=== PATIENT | male | born 1970 | race Caucasian/White ===

== ENCOUNTER → 2022-10-21 10:37 | Outpatient (CLI) | payer OTHER, MEDICAID, SELFPAY ==
[2022-10-21 20:32] LABS: Add Manual Diff / Slide Review NO; Basophils Absolute Auto 100 /uL (0-100); Basophils Percent Auto 0.8 % (0-2); Eosinophils Absolute Auto 100 /uL (0-450); Eosinophils Percent Auto 1.6 % (2-4); Hematocrit 46.2 % (41-53); Hemoglobin 15.5 g/dL (13.5-17.5); Lymphocytes Absolute Auto 2700 /uL (1100-4500); Lymphocytes Percent Auto 32.7 % (25-40); Mean Corpuscular HGB Conc 33.6 % (30-36); Mean Corpuscular Hemoglobin 32.2 PG (26-34); Mean Corpuscular Volume 95.8 fL (80-100); Monocytes Absolute Auto 700 /uL (0-900); Monocytes Percent Auto 8.2 % (3-14); Neutrophils Absolute Auto 4600 /uL (1500-7000); Neutrophils Percent Auto 56.7 % (50-75); Platelet Count 342 X10^3/uL (150-400); Red Blood Cell Count 4.82 X10^6/uL (4.5-5.9); White Blood Cell Count 8.2 X10^3/uL (4.5-11.0)
[2022-10-21 20:41] LABS: Alanine Aminotransferase 59 IU/L (<50); Alkaline Phosphatase 64 U/L (38-126); Aspartate Aminotransferase 39 IU/L (17-59); Bilirubin Total 1.3 mg/dL (0.2-1.3); Blood Urea Nitrogen 13 mg/dL (9-20); Calcium 9.3 mg/dL (8.4-10.2); Carbon Dioxide 30 mmol/L (22-32); Chloride 100 mmol/L (98-107); Cholesterol 197 mg/dL (140-199); Estimated Glomerular Filt Rate > 60 mL/min (>60); Glucose 99 mg/dL (70-100); HDL Cholesterol 60 mg/dL (40-60); HEMOLYSIS < 15 (0-50); LDL Cholesterol Calculated 118 mg/dL (<100); Lactate Dehydrogenase 181 U/L (120-246); Potassium 4.5 mmol/L (3.4-5.1); Sodium 138 mmol/L (137-145); Total Protein 7.3 g/dL (6.3-8.2); Triglycerides 95 mg/dL (35-150)
[2022-10-21 20:58] LABS: HCG Quantitative /Beta subunit < 2.4 mIU/mL (<2.40)
[2022-10-21 21:13] LABS: Prostate Specific Antigen Scrn 1.47 ng/mL (0.1-4.0)
[2022-10-23 16:33] LABS: Albumin 4.3 g/dL (3.5-5.0); Albumin Globulin Ratio 1.4 (1.0-2.8)
== END ==
PROVIDERS: PCP Physician Assistant; Visit Provider Physician Assistant
DX: N50.89 Other specified disorders of the male genital organs (principal); Z12.5 Encounter for screening for malignant neoplasm of prostate
CPT/HCPCS: 80053; 80061; 82105; 83615; 84702; 85025; G0103

== ENCOUNTER → 2022-10-26 15:12 | Outpatient (CLI) | payer OTHER, MEDICAID, SELFPAY ==
--- NOTE | 2022-10-26 15:15 | DI.US.S_ITS ---
PROCEDURE: US SCROTUM INDICATIONS: HARD MASS AT BASE OF RIGHT TESTICLE TECHNIQUE: Real-time scanning was performed of the scrotum and testicles, with image documentation. Color and pulse Doppler interrogation was performed of both testicles. COMPARISON: None. FINDINGS: Right: Testicle is normal in size at 3.5 x 1.8 x 2.8 cm, and homogenous in echotexture. Epididymis is normal in overall size and morphology. Trace right hydrocele. No varicoceles. Overlying scrotal skin is normal in thickness. In the area of palpable abnormality at the base of the right scrotum there are two discrete calcifications measuring two and 3 mm. There is mild thickening of the overlying soft tissue. No abnormal vascularity in the thickened surrounding tissue. Left: Testicle is normal in size at 3.3 x 1.6 x 3.2 cm, and homogeneous in echotexture. Epididymis is normal in overall size and morphology. No hydrocele or varicoceles. Overlying scrotal skin is normal in thickness. Doppler: Color and pulse Doppler demonstrate normal and symmetric arterial flow in both testicles. IMPRESSION: 1. Two right scrotal calcifications with overlying tissue thickening. These account for the palpable abnormality. These are separate from the testicle itself. 2. Trace right hydrocele. 3. Normal testicles and epididymi. Dictated by: Lizeth Hector M.D. on 10/26/2022 at 17:27 Approved by: Lizeth Hector M.D. on 10/26/2022 at 17:31
== END ==
PROVIDERS: PCP Physician Assistant; Referring Provider Physician Assistant; Visit Provider Physician Assistant
DX: N50.89 Other specified disorders of the male genital organs (principal)
CPT/HCPCS: 76870

== ENCOUNTER 2022-11-10 11:35 | Day surgery (SDC) | payer OTHER, MEDICAID, SELFPAY ==
--- NOTE | 2022-11-10 | PATH_ITS ---
[facility] Accession Number: [id number] No. of containers..01 Tissue . 01 Material submitted: . colon - DESCENDING COLON . 01 Diagnosis: Descending Colon, Biopsy: Colonic mucosa with a small benign lymphoid aggregate and no other diagnostic abnormality. Additional levels were examined. Negative for active, chronic, and microscopic colitis. Negative for dysplasia and malignancy. MRV 11/18/2022 1400 Local . 01 Electronically signed: . Ya Corado MD, Pathologist NPI- [id number] . 01 Gross description: . DESCENDING COLON: Received in formalin is 1 fragment(s) of farfan, soft tissue measuring 0.5 x 0.2 x 0.1 cm submitted entirely in 1 cassette(s) /CPE 11/11/2022 0510 Local . 01 Pathologist provided ICD-10: Z12.11 . 01 CPT . 791832 Specimen Comment: A courtesy copy of this report has been sent to [phone] Performed at: 01 [facility] [address] [place] [address], [place], [place] [id number] MD Mc Cunningham MD Phone: [phone]
[2022-11-10 11:47] VITALS: BP 110/66; PULSE 72; RESP 16; TEMP 36.4; O2SAT 99; BMI 23.6
[2022-11-10] MEDS: LACTATED RINGERS 1,000 ML 200 ML IV (12:03)
--- NOTE | 2022-11-10 12:12 | SUR.PREOP ---
While instructing patient what to expect, became pale, diaphoretic, light headed and went out with snoring respirations. Jaw thrust administered, came to about 20 seconds later. IVF wide open. CBG checked, cold wash cloth applied to forehead, bed laid flat.
--- NOTE | 2022-11-10 12:59 | PM.HP.1 ---
History of Present Illness History of Present Illness Date Patient Seen: 11/10/22 Time Patient Seen: 12:59 Chief complaint: Colonoscopy Narrative: The patient presents for colorectal screening. They have never had any previous examination for such. No personal or family history of colon cancer. On further history denies any recent gastrointestinal symptoms. No nausea, vomiting, abdominal pain, loss of appetite, unexplained weight loss, change in bowel habits, or blood per rectum. Patient History Medical History Testicular mass Family & Social History Social History: household members significant other Tobacco & Substance use: Smoking Status Never smoker alcohol intake current alcohol intake frequency 0-2 drinks per day Substance Use Type does not use Meds Home Medications and Allergies Allergies Allergy/AdvReac Type Severity Reaction Status Date / Time No Known Drug Allergies Allergy Unverified 09/22/22 10:11 Exam Vital Signs (past 8 hours): - 11/10/22 11:47 Temperature 97.6 F Pulse Rate 72 Respiratory Rate 16 Blood Pressure 110/66 Pulse Oximetry 99 Oxygen Delivery Method Room Air Oxygen Delivery Method Room Air Narrative Exam Narrative: General adult man alert oriented no acute distress Assessment & Plan Assessment & Plan narrative: The patient requires colorectal screening and colonoscopy is recommended. Technical details were discussed. Risks, benefits, alternatives explained. Risks including but not limited to myocardial infarction, aspiration, bleeding, pain, missed lesion, incomplete examination, need for further radiographic studies, colonic perforation, and need for major abdominal surgery were discussed. All questions were answered to their satisfaction, and they are in agreement with this plan. Time Spent With Patient Critical Care time: I spent a total of [] minutes of critical care time on this patient's care today; this time is exclusive of procedural time.
[2022-11-10 13:26] VITALS: BP 80/53; PULSE 74; RESP 10; TEMP 36.4; O2SAT 95
--- NOTE | 2022-11-10 13:30 | PM.OP.COLON ---
Operative Date/Time/Diagnoses Date of procedure: 11/10/22 Time of procedure: 13:30 Pre-op diagnosis: Colorectal screening Post-op diagnosis: same Procedure & Clinicians Study performed: Colonoscopy and polypectomy Same procedure as scheduled: Yes Indications: Colorectal screening Surgeon: Charles Becker Procedure Notes Procedure in detail: The history and physical was performed/updated and the patient is ASA class is 1. The procedure was discussed in detail with the patient. Potential risks complications including infection, bleeding, missed diagnosis, perforation, need for surgery, and were explained. Their questions were answered and informed consent was obtained. Patient was brought to the procedure room and placed standard monitoring equipment. The patient's vital signs were monitored continuously throughout the entire procedure. Prior to starting time-out was performed. The patient was placed in the left lateral recumbent position. Procedural sedation was administered by anesthesia. Examination began with a thorough inspection of the perianal area there was no evidence of fissures, fistulae, external hemorrhoids or cutaneous malignancy. The colonoscopy scope was then placed into the anal canal and was advanced to the cecum, which was identified by the ileocecal valve, the appendiceal orifice and the confluence of the taenia. The scope was then slowly withdrawn examining colon thoroughly in all directions, irrigating it of any residual stool. - Within the descending colon there was a 3 mm polyp removed with biopsy forceps The patient tolerated the procedure well. They will be discharged once criteria are met. The prep was of good/excellent quality. The withdrawl time was 7 minutes. Specimen(s): other (Descending colon polyp) Impression: Colonic polyp Post-procedure Recommendations: High fiber diet Plan for aftercare: Follow-up is dependent on pathology findings
[2022-11-10 13:31] VITALS: BP 83/62; PULSE 70; RESP 14; O2SAT 98
[2022-11-10 13:37] VITALS: BP 121/76; PULSE 67; RESP 14; O2SAT 98
[2022-11-10 13:41] VITALS: BP 110/84; PULSE 66; RESP 16; TEMP 36.2; O2SAT 97
[2022-11-10 14:29] VITALS: BP 106/63; PULSE 53; RESP 16; TEMP 35.9; O2SAT 99
--- NOTE | 2022-11-10 14:49 | SUR.PHASEII ---
1445: Pt A&Ox4, denies any distress and ready to discharge home. Discharge instructions reviewed with pt and time allowed for questions. IV Dc'd intact, abdomen soft, VSS. Pt left unit with all personal belongings and written instructions to ER entrance to meet taxi to transport pt to [facility] and home. Verified approved by
== END 2022-11-10 14:48 | disposition home or self-care (01) ==
PROVIDERS: PCP Physician Assistant; Referring Provider Surgery; Visit Provider Surgery
PROC: 0DJD8ZZ Inspection of Lower Intestinal Tract, Via Natural or Artificial Opening Endoscopic (ICD-10-PCS; CPT 45378; principal; 2022-11-10 12:45)
DX: Z12.11 Encounter for screening for malignant neoplasm of colon (principal)
CPT/HCPCS: 45380; 82962; J2704; J3010

== ENCOUNTER → 2023-09-22 09:11 | Outpatient (CLI) | payer SELFPAY ==
[2023-09-22 19:44] LABS: Add Manual Diff / Slide Review NO; Basophils Absolute Auto 0 /uL (0-100); Basophils Percent Auto 0.7 % (0-2); Eosinophils Absolute Auto 100 /uL (0-450); Eosinophils Percent Auto 1.5 % (2-4); Hematocrit 45.4 % (41-53); Hemoglobin 15.7 g/dL (13.5-17.5); Lymphocytes Absolute Auto 2500 /uL (1100-4500); Mean Corpuscular HGB Conc 34.7 % (30-36); Monocytes Absolute Auto 600 /uL (0-900); Monocytes Percent Auto 8.5 % (3-14); Neutrophils Absolute Auto 3700 /uL (1500-7000); Neutrophils Percent Auto 53.3 % (50-75); Platelet Count 282 X10^3/uL (150-400); Red Blood Cell Count 4.78 X10^6/uL (4.5-5.9); Red Cell Distribution Width 12.8 % (11.6-14.8); White Blood Cell Count 6.9 X10^3/uL (4.5-11.0)
[2023-09-22 19:50] LABS: Alanine Aminotransferase 72 IU/L (<50); Albumin 4.1 g/dL (3.5-5.0); Albumin Globulin Ratio 1.3 (1.0-2.8); Alkaline Phosphatase 50 U/L (38-126); Aspartate Aminotransferase 43 IU/L (17-59); BUN Creatinine Ratio 17.1 (6-22); Bilirubin Total 1.5 mg/dL (0.2-1.3); Blood Urea Nitrogen 14 mg/dL (9-20); Calcium 9.6 mg/dL (8.4-10.2); Carbon Dioxide 29 mmol/L (22-32); Chloride 102 mmol/L (98-107); Cholesterol 170 mg/dL (140-199); Estimated Glomerular Filt Rate > 60 mL/min (>60); Globulin 3.2 g/dL (1.7-4.1); Glucose 101 mg/dL (70-100); HDL Cholesterol 53 mg/dL (40-60); HEMOLYSIS < 15 (0-50); LDL Cholesterol Calculated 104 mg/dL (<100); Potassium 4.4 mmol/L (3.4-5.1); Sodium 136 mmol/L (137-145); Total Protein 7.3 g/dL (6.3-8.2); Triglycerides 65 mg/dL (35-150)
[2023-09-22 20:16] LABS: TSH w/ Reflex to FT4 2.73 uIU/mL (0.47-4.68)
[2023-09-24 13:03] LABS: Fecal Immunochemical Test Negative (Negative)
== END ==
PROVIDERS: PCP Physician Assistant Medical; Visit Provider Physician Assistant Medical
DX: Z12.11 Encounter for screening for malignant neoplasm of colon (principal); R74.01 Elevation of levels of liver transaminase levels; I45.10 Unspecified right bundle-branch block
CPT/HCPCS: 80053; 80061; 82274; 84443; 85025